=== PATIENT | female | born 1935 | race Caucasian/White ===

== ENCOUNTER 2016-11-12 14:15 | Emergency (ER) | payer MEDICARE, OTHER ==
--- NOTE | 2016-11-12 17:38 | ED Physician Documentation ---
History of Present Illness - Stated complaint Stated Complaint: ELEVATED BP - Chief complaint Chief Complaint: Cardiac - Additonal information Additional information: hx from pt 81 female known HTN and rx norvasc cecilia has not been taking because she thought she could control the BP with diet etc fatigue X 2 days, worse today, and her BP aat the gym was very high (approx 180/ 110) no cp or dypnea she thought her color was a little silverio she took her norvasc and her BP got better and nor she feels better and her color in back to normal Review of Systems Constitutional: reports: Fatigue. denies: Fever, Chills, Sweats Cardiac: denies: Chest pain / pressure Respiratory: denies: Dyspnea GI: denies: Abdominal Pain, Nausea, Vomiting Endocrine: denies: Easy bruising / bleeding Immunocompromised: denies: Immunocompromised PD PAST MEDICAL HISTORY - Present Medications Home Medications: Ambulatory Orders Medication Instructions Recorded Confirmed Levothyroxine [Synthroid] 50 mcg PO DAILY 11/12/16 11/12/16 amLODIPine [Norvasc] 5 mg PO DAILY 11/12/16 11/12/16 - Allergies Allergies/Adverse Reactions: Allergies Allergy/AdvReac Type Severity Reaction Status Date / Time Penicillins Allergy Unknown Verified 11/12/16 14:26 - Social History Does the pt smoke?: No Smoking Status: Never smoker PD ED PE NORMAL - Vitals Vital signs reviewed: Yes - General General: Alert and oriented X 3 - HEENT HEENT: PERRL - Neck Neck: Supple, no meningeal sign - Cardiac Cardiac: RRR - Respiratory Respiratory: No respiratory distress, Clear bilaterally - Abdomen Abdomen: Soft, Non tender - Neuro Neuro: Alert and oriented X 3 Results - Vitals Vitals: Vital Signs - 24 hr 11/12/16 11/12/16 11/12/16 14:22 15:18 15:28 Temperature 37 C Heart Rate 74 60 62 Respiratory 14 14 Rate Blood Pressure 167/101 H 165/76 H 165/76 H O2 Saturation 100 97 97 11/12/16 16:26 Temperature Heart Rate 58 L Respiratory 18 Rate Blood Pressure 137/72 H O2 Saturation 97 Oxygen O2 Source Room air - EKG (time done) 1554 Rate: Rate (enter#) Rhythm: NSR Intervals: Prolonged CO Ischemia: ST elevation c/w repol (concave up with J point notching) - Labs Labs: Laboratory Tests 11/12/16 15:49 Troponin I < 0.04 PD MEDICAL DECISION MAKING - ED course ED course: EKG abn but more c/w repol than ischemia and trop neg desputre sx since yesterday pt feeling better now that BP down after taking her norvasc as rxed will dc Departure - Departure Disposition: Home, Self Care Clinical Impression: Hypertension Qualifiers: Hypertension type: essential hypertension Qualified Code(s): I10 - Essential ( primary) hypertension Condition: Good Instructions: ED Hypertension New Begin Tx Comments: Take your norvasc as prescribed Follow up with your PMD for a recheck within the next week Return if worse
[2016-11-12 17:55] VITALS: BP 132/77
== END 2016-11-12 17:54 | disposition home or self-care (01) ==
LOC: ED 14:15
DX: I10 Essential (primary) hypertension (principal)
CPT/HCPCS: 36415; 84484; 93005; 93010; 99283